=== PATIENT | male | born 1945 | race Two or more races ===

== ENCOUNTER → 2025-05-15 | Emergency (ER) | payer OTHER ==
[~2025-05-15] VITALS: Ht 162.6 cm; Wt 61.7 kg
[~2025-05-15] MED LIST: 0.9 % SODIUM CHLORIDE 1,000 ML IV ONE; ADULT LOW DOSE81 M1; ARICEPT5 MG; BACTRIM DS TAB1 EACH PO; DIPHENHYDRAMINE HCL 50 MG/ML VIAL 1ML IV ONE; FAMOtidine 10 MG/ML (4ML VIAL) IV ONE; LEVOTHYROXINE100 MC1; LIPITOR20 MG; METHYLPREDNISOLONE SOD SUCC 40 MG VIAL IV ONE; MONTELUKAST SODI4 M1; MORPHINE SULFATE 2 MG/ML SYRINGE IV ONE; OXCARBAZEPINE300 MG; PEPCID AC20 MG; PEPCID AC20 MG PO; SYMBICORT 16010.2 GM; THEO-24400 MG
[2025-05-15 20:35] LABS: BASO % 0.3 % (0.1-1.2); EOS # 0.17 (0.04-0.54); EOS % 2.6 % (0.7-7.0); LYMPH # 1.35 (1.18-3.74); LYMPH % 20.5 % (19.3-53.1); MEAN PLATELET VOLUME 11.60 fl (9.4-12.4); MONO # 0.72 (0.24-0.82); MONO % 10.9 % (4.7-12.5); NEUT # 4.31 (1.56-6.13); NEUT % 65.5 % (34.0-71.1); RED CELL DISTRIBUTION WIDTH 12.8 % (11.6-14.4)
[2025-05-15 21:17] LABS: URINE APPEARANCE Clear; URINE BILIRRUBIN Negative (NEGATIVE); URINE BLOOD Negative; URINE COLOR Dark Yellow; URINE GLUCOSE Negative (NEGATIVE); URINE KETONE Trace (NEGATIVE); URINE LEUKOCYTE Trace; URINE NITRATE Negative; URINE PROTEIN Negative (NEGATIVE); URINE UROBILINOGEN 1.0 E.U./dl
[2025-05-15 21:20] LABS: URINE BACTERIA 37.1 uL (0.0-1933); URINE EPITHELIAL CELLS 4.7 uL (0.0-38.8); URINE RBC 3.0 uL (0.0-20.8); URINE WBC 3.2 uL (0.0-23.2)
[2025-05-15 21:28] LABS: URINE CAST > 21.83 uL (0.0-1.40)
[2025-05-15 21:33] LABS: ALT/SGPT 29.0 U/L (12-78); AST/SGOT 23.0 U/L (15-37); BILIRUBIN TOTAL 0.38 mg/dL (0.3-1.2); BILIRUBIN,CONJUGATED 0.11 mg/dL (0.0-0.2); BUN CREA RATIO 17.0 (7.0-25.0); CREATININE SERUM 1.7 mg/dL (0.70-1.30); GFR 39.07; GLOBULINA 3.1 G/DL (2.4-3.5); GLUCOSE FASTING 103.0 mg/dL (65-100); OSMOLALITY SERUM 297.0 MOSM/KG (275-295)
== END | disposition home or self-care (01) ==
LOC: ER 18:07
PROVIDERS: General Practice
DX: R10.31 Right lower quadrant pain (principal); Z91.041 Radiographic dye allergy status; Z91.013 Allergy to seafood; J45.909 Unspecified asthma, uncomplicated; Z85.89 Personal history of malignant neoplasm of other organs and systems; E03.8 Other specified hypothyroidism; I10 Essential (primary) hypertension; K29.70 Gastritis, unspecified, without bleeding; R53.1 Weakness; K80.20 Calculus of gallbladder without cholecystitis without obstruction; K57.30 Diverticulosis of large intestine without perforation or abscess without bleeding
CPT/HCPCS: 36415; 74177; 93005; 96365; 96366; 99284; J1200; J2270; J3490; J7030; Q9965